=== PATIENT | male | born 1965 | race African-American/Black ===

== ENCOUNTER 2017-01-26 00:03 | Observation (INO) | payer OTHER ==
[~2017-01-26] VITALS: Ht 190.5 cm; Wt 119.2 kg
[~2017-01-26 00:03] MED LIST: FLEXERIL10 MG PO; HYDROCHLOROTH12.5 M3 PO; HYDROCHLOROTHIAZIDE; KEFLEX500 MG PO; LANTUS 10100 UNITS/ SC; LISINOPRIL40 MG PO; METFORMIN HCL500 MG PO; MOTRIN600 MG PO; NAPROSYN500 MG PO; NAPROXEN500 MG PO; NOVOLIN,HU100 UNITS1 SC; OXYCODONE HCL15 MG PO; PERCOCET 5/31 TABLET PO; TRAMADOL HCL50 MG PO; VENTOLIN HFA18 GM IH; [UNRECOGNIZED DRUG - OTHER]
[2017-01-26 00:51] LABS: HEMATOCRIT 39.7 % (38.0-50.0); MCH 28.1 PG (29.0-34.0); MCHC 34.5 G/DL (30.0-36.0); MCV 81.5 FL (86-99); MEAN PLAT.VOLUME 11.3 uM^3 (9.0-12.4); PLATELET COUNT 221 K/uL (156-360); RBC DIS.WIDTH-CV 11.9 % (11.8-14.6); RBC DIS.WIDTH-SD 35.6 % (39-53); RED BLOOD COUNT 4.87 M/uL (4.00-5.50); WHITE BLOOD COUNT 5.6 K/uL (4.1-10.2)
[2017-01-26 00:57] LABS: CHLORIDE 101 mEq/L (99-109); POTASSIUM 3.8 mEq/L (3.7-5.4); SODIUM 133 mEq/L (136-147)
[2017-01-26 00:58] LABS: GLUCOSE 383 mg/dL (70-99)
[2017-01-26 01:00] LABS: ANION GAP 8 MEQ/L (2-14)
[2017-01-26 01:02] LABS: GFR ESTIMATE (CALCULATED) 59 mL/min/
[2017-01-26 01:03] LABS: UREA NITROGEN (BUN) 20 mg/dL (9-23)
[2017-01-26 01:09] LABS: TROP-I INTERPRETATION NEGATIVE; TROPONIN-I < 0.01 ng/mL (0.0-0.30)
[2017-01-26 03:37] LABS: D-DIMER ELISA < 150.00 ng/mLDDU (<230)
[2017-01-26 03:41] LABS: TOTAL BILIRUBIN 0.4 mg/dL (0.0-1.0)
[2017-01-26 03:42] LABS: ALKALINE PHOSPHATASE 108 IU/L (3-129)
[2017-01-26 03:45] LABS: DIRECT BILIRUBIN 0.2 mg/dL (0.0-0.3)
[2017-01-26 04:57] LABS: HDL CHOLESTEROL 60 MG/DL (Desirable>=40); LDL CHOLESTEROL 134 mg/dL (Desirable<100); NON-HDL CHOLESTEROL 173 mg/dL (Desirable<160); TOTAL CHOLESTEROL 233 mg/dL (Desirable<200); TRIGLYCERIDES 197 MG/DL (Normal: <150)
[2017-01-26 05:56] VITALS: BP 136/77
[2017-01-26 06:53] LABS: Estimated Average Glucose 292 mg/dL (70-123); HEMOGLOBIN A1c (GLYCOHEMOGLOB) 11.8 % HGB (Below 5.7)
[2017-01-26] MEDS ORDERED: LANTUS 10100 UNITS/ SC (06:56)
[2017-01-26] MEDS ORDERED: NAPROSYN500 MG PO (06:58)
[2017-01-26 07:33] LABS: METH RESISTANT S AUREUS PCR NEGATIVE (NEGATIVE)
[2017-01-26 07:38] LABS: PROBE CHECK PASS; SPECIMEN PROCESSING CONTROL PASS
[2017-01-26 08:11] LABS: TROP-I INTERPRETATION NEGATIVE; TROPONIN-I < 0.01 ng/mL (0.0-0.30)
[2017-01-26 08:45] VITALS: BP 137/76
[2017-01-26 08:47] LABS: POINT-OF-CARE METER ID UU13113831
[2017-01-26] MEDS ORDERED: MYCOSTATIN15 GM PO (08:51)
[2017-01-26] MEDS ORDERED: LYRICA200 MG PO (08:51)
[2017-01-26] MEDS ORDERED: PERCOCET 10/1 TABLET PO (09:12)
[2017-01-26 11:34] VITALS: BP 142/75
[2017-01-26 12:49] LABS: POINT-OF-CARE METER ID UU13113831
[2017-01-26 13:30] LABS: TROP-I INTERPRETATION NEGATIVE; TROPONIN-I < 0.01 ng/mL (0.0-0.30)
[2017-01-26] MEDS ORDERED: NITROSTAT0.4 MG SL (15:00)
== END 2017-01-26 17:00 | disposition home or self-care (01) ==
LOC: EME 00:03 → EDOF 03:25 → ENRESERV 03:26 → 5WEST 05:30
PROVIDERS: Hospitalist; Physician Assistant
DX: R07.9 Chest pain, unspecified (principal); R19.7 Diarrhea, unspecified; I10 Essential (primary) hypertension; T46.5X6A Underdosing of other antihypertensive drugs, initial encounter; T38.3X6A Underdosing of insulin and oral hypoglycemic [antidiabetic] drugs, initial encounter; Z91.128 Patient's intentional underdosing of medication regimen for other reason; Z91.19 Patient's noncompliance with other medical treatment and regimen; E11.65 Type 2 diabetes mellitus with hyperglycemia; N28.9 Disorder of kidney and ureter, unspecified; Z79.4 Long term (current) use of insulin; Z79.82 Long term (current) use of aspirin; Z82.49 Family history of ischemic heart disease and other diseases of the circulatory system; Z83.3 Family history of diabetes mellitus
CPT/HCPCS: 71020; 80048; 80061; 80076; 82948; 83036; 84484; 85027; 85379; 87641; 93005; 93306; 99281; 99285; G0378; J1815; J2270

== ENCOUNTER 2017-02-02 08:56 | Emergency (ER) | payer OTHER ==
[~2017-02-02] VITALS: Ht 190.5 cm; Wt 120.9 kg
[~2017-02-02 08:56] MED LIST changes: +LYRICA200 MG PO; +MYCOSTATIN15 GM PO; +NITROSTAT0.4 MG SL; +PERCOCET 10/1 TABLET PO
[2017-02-02 09:31] LABS: HEMATOCRIT 38.9 % (38.0-50.0); MCH 28.3 PG (29.0-34.0); MCHC 33.9 G/DL (30.0-36.0); MCV 83.5 FL (86-99); RBC DIS.WIDTH-SD 36.5 % (39-53); RED BLOOD COUNT 4.66 M/uL (4.00-5.50); WHITE BLOOD COUNT 5.3 K/uL (4.1-10.2)
[2017-02-02 09:41] LABS: CHLORIDE 102 mEq/L (99-109); POTASSIUM 4.2 mEq/L (3.7-5.4); SODIUM 133 mEq/L (136-147)
[2017-02-02 09:43] LABS: GLUCOSE 342 mg/dL (70-99)
[2017-02-02 09:44] LABS: ANION GAP 11 MEQ/L (2-14)
[2017-02-02 09:45] LABS: TOTAL BILIRUBIN 0.4 mg/dL (0.0-1.0)
[2017-02-02 09:46] LABS: ALKALINE PHOSPHATASE 116 IU/L (3-129)
[2017-02-02 09:47] LABS: GFR ESTIMATE (CALCULATED) > 59 mL/min/
[2017-02-02 09:47] LABS: ADD MIUA? YES; BILIRUBIN NEGATIVE; BLOOD SMALL; COLOR YELLOW ((YELLOW)); GLUCOSE (STRIP) >=500; KETONES 5; LEUKOCYTES NEGATIVE; NITRITE NEGATIVE; PROTEIN (STRIP) NEGATIVE; SPECIFIC GRAVITY 1.018 (1.000-1.030); UROBILINOGEN 0.2 MG/DL (0.2-1.0)
[2017-02-02 09:48] LABS: UREA NITROGEN (BUN) 20 mg/dL (9-23)
[2017-02-02 09:50] LABS: BACTERIA NONE SEEN /HPF; EPITHELIAL CELLS RARE /HPF; MUCUS TRACE /LPF; RED BLOOD CELLS 0-5 /HPF (0-5); UCUL ADDED? NO; WHITE BLOOD CELLS 0-5 /HPF (0-5)
[2017-02-02 09:50] LABS: LIPASE 54 U/L (1.0-51.0)
[2017-02-02] MEDS ORDERED: MOTRIN800 MG PO (09:57)
[2017-02-02] MEDS ORDERED: FLEXERIL10 MG PO (09:57)
[2017-02-02 09:59] LABS: MEAN PLAT.VOLUME 11.5 uM^3 (9.0-12.4); PLAT.SUFFICIENCY ADEQUATE
[2017-02-02 10:00] LABS: PLATELET COUNT 153 K/uL (156-360)
[2017-02-02 10:38] VITALS: BP 139/81
[2017-02-02 12:08] LABS: C DIFF TOXIN NEGATIVE (NEGATIVE)
[2017-02-02 12:12] LABS: PROBE CHECK PASS; SPECIMEN PROCESSING CONTROL PASS
== END 2017-02-02 10:45 | disposition home or self-care (01) ==
LOC: EME 08:56
PROVIDERS: Emergency Medicine
DX: S29.011A Strain of muscle and tendon of front wall of thorax, initial encounter (principal); S29.012A Strain of muscle and tendon of back wall of thorax, initial encounter; X50.9XXA Other and unspecified overexertion or strenuous movements or postures, initial encounter; E11.65 Type 2 diabetes mellitus with hyperglycemia; Z79.4 Long term (current) use of insulin; R19.7 Diarrhea, unspecified; I10 Essential (primary) hypertension; Z87.891 Personal history of nicotine dependence
CPT/HCPCS: 80053; 81003; 83690; 85027; 87493; 93005; 99281; 99284

== ENCOUNTER 2017-06-15 19:35 | Emergency (ER) | payer OTHER ==
[~2017-06-15] VITALS: Ht 190.5 cm; Wt 119.7 kg
[~2017-06-15 19:35] MED LIST changes: +MOTRIN800 MG PO
[2017-06-15 20:48] LABS: APPEARANCE SL.HAZY ((CLEAR)); BILIRUBIN NEGATIVE; BLOOD MODERATE; COLOR YELLOW ((YELLOW)); GLUCOSE (STRIP) >=500; KETONES NEGATIVE; LEUKOCYTES NEGATIVE; NITRITE NEGATIVE; PROTEIN (STRIP) NEGATIVE; UROBILINOGEN 0.2 MG/DL (0.2-1.0)
[2017-06-15 21:01] LABS: BACTERIA NONE SEEN /HPF; EPITHELIAL CELLS RARE /HPF; MUCUS TRACE /LPF; RED BLOOD CELLS 0-5 /HPF (0-5); UCUL ADDED? NO; WHITE BLOOD CELLS 0-5 /HPF (0-5)
[2017-06-15 21:28] LABS: BASOPHIL (%) 0.4 % (0-1); CARBON DIOXIDE (BICARBONATE) 20.6 MEQ/L (20-31); EOSINOPHIL COUNT 0.1 K/uL (0-0.3); HEMATOCRIT 40.7 % (38.0-50.0); HEMOGLOBIN 14.4 G/DL (12.5-16.6); IMMATURE GRANULOCYTE (%) 0.4 % (0.0-0.7); LYMPHOCYTE (%) 34.9 % (15-42); LYMPHOCYTE COUNT 1.9 K/uL (1.0-2.8); MCH 28.7 PG (29.0-34.0); MCHC 35.4 G/DL (30.0-36.0); MCV 81.1 FL (86-99); MONOCYTE (%) 3.8 % (3-12); MONOCYTE COUNT 0.2 K/uL (0-0.8); NEUTROPHIL (%) 58.5 % (45-76); NEUTROPHIL COUNT 3.2 K/uL (1.8-6.4); PLATELET COUNT 226 K/uL (156-360); RBC DIS.WIDTH-CV 12.2 % (11.8-14.6); RBC DIS.WIDTH-SD 35.8 % (39-53); RED BLOOD COUNT 5.02 M/uL (4.00-5.50); WHITE BLOOD COUNT 5.5 K/uL (4.1-10.2)
[2017-06-15 21:39] LABS: CHLORIDE 102 mEq/L (99-109); SODIUM 137 mEq/L (136-147)
[2017-06-15 21:41] LABS: GLUCOSE 300 mg/dL (70-99)
[2017-06-15 21:45] LABS: CREATININE 1.2 mg/dL (0.6-1.3); GFR ESTIMATE (CALCULATED) > 59 mL/min/ (58.99-99999)
[2017-06-15 21:46] LABS: UREA NITROGEN (BUN) 18 mg/dL (9-23)
[2017-06-15 21:53] LABS: TROP-I INTERPRETATION NEGATIVE; TROPONIN-I 0.02 ng/mL (0.0-0.30)
[2017-06-16 00:31] VITALS: BP 162/94
== END 2017-06-16 00:32 | disposition home or self-care (01) ==
LOC: EME → EDBD 19:35 → EME 19:35
PROVIDERS: Emergency Medicine
DX: R42 Dizziness and giddiness (principal); E11.65 Type 2 diabetes mellitus with hyperglycemia; I44.0 Atrioventricular block, first degree; I10 Essential (primary) hypertension; Z79.4 Long term (current) use of insulin; Z87.891 Personal history of nicotine dependence
CPT/HCPCS: 70450; 71046; 71120; 80048; 81003; 82010; 82803; 83605; 84484; 85025; 93005; 99281; 99285